=== PATIENT | female | born 2000 | race Caucasian/White ===

== ENCOUNTER 2020-07-04 05:47 | Emergency (ER) | payer MEDICAID ==
[~2020-07-04] VITALS: Ht 162.6 cm; Wt 63.0 kg
[2020-07-04 07:02] VITALS: BP 108/54
== END 2020-07-04 07:02 | disposition home or self-care (01) ==
LOC: ED 05:47
DX: O26.891 Other specified pregnancy related conditions, first trimester (principal); R07.89 Other chest pain; Z3A.11 11 weeks gestation of pregnancy